=== PATIENT | female | born 1970 | race Caucasian/White ===

== ENCOUNTER → 2025-03-02 08:37 | Outpatient (CLI) | payer SELFPAY ==
--- NOTE | 2025-03-02 08:41 | DI.MG.S_ITS ---
MM diagnostic mammo unilat RT: 03/02/2025. BI-RADS: 3 CLINICAL: 55-year old female for right diagnostic mammogram. The patient presents for a follow-up. Tyrer-Cuzick lifetime risk of 7.3%. No personal or first-degree family history of breast cancer. The patient had a prior right breast biopsy. PRIOR EXAMS Outside imaging 09/24/2024, 06/27/2024, 03/13/2022, 08/27/2019. MAMMOGRAPHY TECHNIQUE: 2D and 3D (tomosynthesis) digital mammographic views obtained, with additional images as needed for full coverage. Current study was also evaluated with a Computer Aided Detection (CAD) system. DENSITY Right: B. There are scattered areas of fibroglandular density. MAMMOGRAPHY FINDINGS Right: CC only, Outer, Middle depth: Correlating with prior imaging concern, there is a stable asymmetry seen only on one view. This finding is less conspicuous compared to the 06/27/2024 screening mammogram. IMPRESSION: Right (Asymmetry): CC only, Outer, Middle depth * Probably Benign. RECOMMENDATIONS Right: CC only, Outer, Middle depth * Six month followup with diagnostic mammography. When the patient returns for short-term unilateral followup, a mammogram for the contralateral breast will also be due. COMMENTS: Findings and recommendations were conveyed to the patient during today's evaluation. OVERALL ASSESSMENT CATEGORY BI-RADS-3: Probably Benign. ELECTRONICALLY SIGNED: Adelaida Coleman M.D. on 03/02/2025 at 09:50:41 AM PT Interpreting Station ID: [id number]
== END ==
LOC: MAMMO 08:40
PROVIDERS: PCP Family Medicine; Referring Provider Family Medicine; Visit Provider Family Medicine
DX: R92.8 Other abnormal and inconclusive findings on diagnostic imaging of breast (principal); N64.89 Other specified disorders of breast
CPT/HCPCS: 77065; G0279